=== PATIENT | male | born 1960 | race Caucasian/White ===

== ENCOUNTER 2021-05-28 12:17 | Emergency (ER) | payer BC ==
[~2021-05-28] VITALS: Ht 182.9 cm; Wt 108.9 kg
[~2021-05-28 12:17] MED LIST: LISI5 PO; METF500 PO; Voltaren100 GM TOP
== END 2021-05-28 14:00 | disposition home or self-care (01) ==
LOC: ER 12:17
DX: S83.91XA Sprain of unspecified site of right knee, initial encounter (principal); W11.XXXA Fall on and from ladder, initial encounter; I10 Essential (primary) hypertension; E11.9 Type 2 diabetes mellitus without complications; Z87.891 Personal history of nicotine dependence
CPT/HCPCS: 29505; 73562-RT; 99283-25

== ENCOUNTER 2021-10-03 08:24 | Day surgery (SDC) | payer BC, OTHER ==
[~2021-10-03] VITALS: Ht 182.9 cm; Wt 113.1 kg
[2021-10-03] MEDS ORDERED: CLOP75 PO (08:50)
[2021-10-03] MEDS ORDERED: ATOR20 PO (08:51)
[2021-10-03] MEDS ORDERED: ASPI81CH PO (08:51)
[2021-10-03] MEDS ORDERED: METO25ER PO (08:51)
[2021-10-03] MEDS ORDERED: AMLO5 PO (08:53)
[2021-10-03] MEDS ORDERED: GLIP2.5ER PO (08:54)
== END 2021-10-03 13:25 | disposition home or self-care (01) ==
LOC: ORSCSDS 08:24
PROVIDERS: Orthopaedic Surgery
PROC: 0MSN4ZZ Reposition Right Knee Bursa and Ligament, Percutaneous Endoscopic Approach (ICD-10-PCS; principal; 2021-10-03 09:30)
PROC: 0SBC4ZZ Excision of Right Knee Joint, Percutaneous Endoscopic Approach (ICD-10-PCS; principal; 2021-10-03 09:30)
DX: S83.511A Sprain of anterior cruciate ligament of right knee, initial encounter (principal); S83.241A Other tear of medial meniscus, current injury, right knee, initial encounter; M25.861 Other specified joint disorders, right knee; I10 Essential (primary) hypertension; E11.9 Type 2 diabetes mellitus without complications; I25.10 Atherosclerotic heart disease of native coronary artery without angina pectoris; Z79.84 Long term (current) use of oral hypoglycemic drugs; Z79.899 Other long term (current) drug therapy; Z87.891 Personal history of nicotine dependence
CPT/HCPCS: 82947; A9270; C1713; J0171; J0690; J1100; J2250; J2405; J2704; J3010; J7120

== ENCOUNTER 2023-05-17 07:27 | Day surgery (SDC) | payer OTHER ==
[~2023-05-17 07:27] MED LIST changes: +AMARYL1 M1 PO; +AMLO5 PO; +AMLODIPINE BESY10 MG PO; +ASPI81CH PO; +ATOR20 PO; +CLOP75 PO; +GLIP2.5ER PO; +LIPITOR80 MG PO; +LOSA50 PO; +METFORMIN HCL500 M2 PO; +METO100ER PO; +METO25ER PO
== END 2023-05-17 22:54 | disposition home or self-care (01) ==
LOC: CT 07:27
DX: I25.10 Atherosclerotic heart disease of native coronary artery without angina pectoris (principal); R07.9 Chest pain, unspecified; K44.9 Diaphragmatic hernia without obstruction or gangrene; Z95.1 Presence of aortocoronary bypass graft; I10 Essential (primary) hypertension; E11.9 Type 2 diabetes mellitus without complications; E78.5 Hyperlipidemia, unspecified
CPT/HCPCS: 75574; Q9967

== ENCOUNTER 2023-07-22 07:11 | Day surgery (SDC) | payer OTHER ==
[2023-07-22] VITALS (17 sets, daily range): BP systolic 124–161; BP diastolic 73–99
[~2023-07-22] VITALS: Ht 182.9 cm; Wt 104.4 kg
[~2023-07-22 07:11] MED LIST changes: +ATOR80 PO
[2023-07-22] MEDS ORDERED: AMARYL1 M1 PO (07:33)
[2023-07-22] MEDS ORDERED: METO100ER PO (07:33)
[2023-07-22] MEDS ORDERED: OZEMPIC0.25 MG/02 SC (07:34)
--- NOTE | 2023-07-22 07:48 | NUR ---
Ambulatory in Day Surgery History, Chart, Medications and Allergies reviewed before start of procedure. Pre-Op teaching done. Pt verbalizes understanding. Patient States Post-Procedure ride home has been arranged.
--- NOTE | 2023-07-22 08:59 | NUR ---
07/22/23 0859 Mukund Taveras HISTORY, CHART, MEDICATIONS AND ALLERGIES REVIEWED BEFORE START OF PROCEDURE. PATIENT CONFIRMS NPO STATUS AND AGREES WITH SCHEDULED PROCEDURE. 3-LEAD EKG REVIEWED WITH PHYSICIAN PRIOR TO START OF PROCEDURE. MONITOR INTACT WITH CONTINUOUS PULSE OXIMETRY,CAPNOGRAPHY, 3-LEAD EKG, INTERMITTENT BP. SUPPLEMENTAL O2 TO BE TITRATED THROUGHOUT PROCEDURE TO MAINTAIN O2 SATURATION ABOVE 90%. PATIENT DETERMINED TO BE ASA APPROPRIATE FOR PROPOFOL SEDATION PRIOR TO START OF PROCEDURE BY DR. BARRAZA.
== END 2023-07-22 09:55 | disposition home or self-care (01) ==
LOC: ORSCMMR 07:11 → ORD 08:00 → ORSCMMR 08:00
PROVIDERS: Internal Medicine Gastroenterology
PROC: 0DBL8ZX Excision of Transverse Colon, Via Natural or Artificial Opening Endoscopic, Diagnostic (ICD-10-PCS; principal; 2023-07-22 08:00)
DX: Z12.11 Encounter for screening for malignant neoplasm of colon (principal); D12.3 Benign neoplasm of transverse colon; E11.9 Type 2 diabetes mellitus without complications; Z79.84 Long term (current) use of oral hypoglycemic drugs; I25.10 Atherosclerotic heart disease of native coronary artery without angina pectoris; I25.2 Old myocardial infarction; Z79.02 Long term (current) use of antithrombotics/antiplatelets; Z79.82 Long term (current) use of aspirin; Z87.891 Personal history of nicotine dependence; E78.00 Pure hypercholesterolemia, unspecified; I10 Essential (primary) hypertension; Z79.899 Other long term (current) drug therapy
CPT/HCPCS: 82947; 88305; J2704; J7120

== ENCOUNTER 2023-08-14 08:11 | Day surgery (SDC) | payer OTHER ==
[~2023-08-14] VITALS: Ht 180.3 cm; Wt 107.0 kg
[2023-08-14] VITALS (14 sets, daily range): BP systolic 136–165; BP diastolic 80–105
[~2023-08-14 08:11] MED LIST changes: +OZEMPIC0.25 MG/02 SC
[2023-08-14] MEDS ORDERED: WEGOVY0.5 MG/0.5 SC (08:44)
--- NOTE | 2023-08-14 10:35 | NUR ---
PT RETURNED TO RECOVERY POST PROCEDURE. PT AWAKE AND CONVERSING APPROPRIATELY, DENIES CHEST PAIN POST PROCEDURE. MONITOR SR 70'S, B/P 163/92, SPO2 97% RA, AFEBRILE. R GROIN SITE NO SWELLING/HEMATOMA, TEGADERM DRSG INTACT; ANGIO SEAL DEPLOYED, RLE PULSES DP 1+ PT 2+ (UNCHANGED FROM PRE).
--- NOTE | 2023-08-14 13:00 | NUR ---
PT'S HOB ELEVATED, SITE UNCHANGED. PT TAKING LUNCH WITHOUT PROBLEM.
--- NOTE | 2023-08-14 15:05 | NUR ---
PT AMB TO BATHROOM AND IN SPANN, SITE UNCHANGED. PT DRESSED SELF WITHOUT PROBLEM, SITE UNCHANGED; IV REMOVED-CANNULA INTACT.
--- NOTE | 2023-08-14 15:25 | NUR ---
PT RECEIVED DISCHARGE INSTRUCTIONS, MED LIST AND AFTER CARE INSTRUCTIONS; VERBALIZED GOOD UNDERSTANDING. PT LEFT FACILITY VIA W/C, CONDITION STABLE.
== END 2023-08-14 15:25 | disposition home or self-care (01) ==
LOC: MHTC 08:11
DX: I25.810 Atherosclerosis of coronary artery bypass graft(s) without angina pectoris (principal); I25.10 Atherosclerotic heart disease of native coronary artery without angina pectoris; I11.0 Hypertensive heart disease with heart failure; I50.30 Unspecified diastolic (congestive) heart failure; I44.0 Atrioventricular block, first degree; E11.9 Type 2 diabetes mellitus without complications; Z95.1 Presence of aortocoronary bypass graft; Z79.84 Long term (current) use of oral hypoglycemic drugs; Z79.899 Other long term (current) drug therapy
CPT/HCPCS: 76937; 93459; 99152; 99153; C1760; C1769; C1894; J1644; J2250; J3010; J7030; J7050; Q9967

== ENCOUNTER → 2024-11-06 | Outpatient (CLI) | payer OTHER ==
[~2024-11-06] MED LIST changes: +WEGOVY0.5 MG/0.5 SC
[2024-11-06 12:06] LABS: Microalb/Creat Ratio UR, Rand 5.21 mg/g (0.000-30.000); Microalbumin, Random Urine 5.47 mg/L (0.000-20.000)
== END | disposition home or self-care (01) ==
LOC: LAB SHORT 09:34
PROVIDERS: Physician Assistant
DX: E11.40 Type 2 diabetes mellitus with diabetic neuropathy, unspecified (principal); E11.65 Type 2 diabetes mellitus with hyperglycemia
CPT/HCPCS: 82043; 82570